=== PATIENT | female | born 1945 | race Caucasian/White ===

== ENCOUNTER 2024-01-12 05:43 | Day surgery (SDC) | payer MEDICARE, SELFPAY ==
[2024-01-12 09:08] VITALS: BMI 34.7
[2024-01-12 09:09] VITALS: BMI 34.7
[2024-01-12 09:10] VITALS: BP 123/69
[2024-01-12 12:50] VITALS: BP 59/47
[2024-01-12 12:55] VITALS: BP 119/59
[2024-01-12 13:00] VITALS: BP 120/58
[2024-01-12 13:15] VITALS: BP 120/58
[2024-01-12 13:30] VITALS: BP 125/51
== END 2024-01-12 14:05 | disposition home or self-care (01) ==
LOC: SDS 05:43
PROVIDERS: ATTENDING PHYSICIAN Internal Medicine Gastroenterology; FAMILY PHYSICIAN Internal Medicine
DX: K31.819 Angiodysplasia of stomach and duodenum without bleeding (principal); D50.0 Iron deficiency anemia secondary to blood loss (chronic); K22.89 Other specified disease of esophagus; K44.9 Diaphragmatic hernia without obstruction or gangrene; K31.7 Polyp of stomach and duodenum; T18.2XXA Foreign body in stomach, initial encounter; Y83.1 Surgical operation with implant of artificial internal device as the cause of abnormal reaction of the patient, or of later complication, without mention of misadventure at the time of the procedure; D12.0 Benign neoplasm of cecum; D12.3 Benign neoplasm of transverse colon; K57.30 Diverticulosis of large intestine without perforation or abscess without bleeding; Z80.0 Family history of malignant neoplasm of digestive organs
CPT/HCPCS: 43255; 45385; 88305